=== PATIENT | male | born 1985 | race Caucasian/White ===

== ENCOUNTER 2017-11-16 10:40 | Day surgery (SDC) | payer OTHER ==
[~2017-11-16 10:40] MED LIST: CEFAZOLIN 1 GM INJ; LIDOCAINE 2% (SDV) 5 ML INJ; ROCURONIUM 50 MG INJ
[2017-11-16] MEDS ORDERED: CEFAZOLIN 2 GM/50 ML (PMX) 50 ML IVPB (11:30)
[2017-11-16] MEDS ORDERED: FENTAnyl 50 MCG/ML VIAL (12:24)
[2017-11-16] MEDS ORDERED: hydrALAzine 20 MG INJ (12:53)
[2017-11-16] MEDS ORDERED: ETOMIDATE 20 MG INJ (12:53)
[2017-11-16] MEDS ORDERED: SUGAMMADEX SODIUM 200 MG/2 ML VIAL IV (13:17)
[2017-11-16] MEDS: HYDROCODONE/APAP (5/325) TAB PO (13:47)
[2017-11-16] MEDS ORDERED: hydrALAzine 20 MG INJ IV (14:00)
[2017-11-16] MEDS ORDERED: LABETALOL HCL 20MG INJ IV (14:00)
[2017-11-16] MEDS ORDERED: KETOROLAC 30 MG INJ IV (14:00)
[2017-11-16] MEDS ORDERED: FENTAnyl 50 MCG/ML VIAL IV ×2 (14:00)
[2017-11-16] MEDS ORDERED: MEPERIDINE 25 MG INJ IV (14:00)
[2017-11-16] MEDS ORDERED: OXYCODONE/ACETAMINOPHEN (5/325) TAB PO (14:00)
[2017-11-16] MEDS ORDERED: METOCLOPRAMIDE 10 MG INJ IV (14:00)
[2017-11-16] MEDS ORDERED: HYDROmorphONE (0.2 MG/ML) 10ML SYG IV ×2 (14:00)
[2017-11-16] MEDS ORDERED: ALBUTEROL 0.083% (NEB) 2.5 MG/3 ML AMP HHN (14:00)
[2017-11-16] MEDS ORDERED: ONDANSETRON 4 MG INJ IV (14:00)
[2017-11-16] MEDS ORDERED: EPHEDrine SULFATE 50 MG/5 ML SYG IV (14:00)
== END 2017-11-16 15:00 | disposition home or self-care (01) ==
LOC: SDS 10:40
DX: N21.0 Calculus in bladder (principal)
CPT/HCPCS: 52317; 71045; 87086; 88300